=== PATIENT | female | born 1995 | race American Indian/Alaskan Native ===

== ENCOUNTER 2017-01-22 09:00 | Emergency (ER) | payer BC ==
[2017-01-22 09:57] VITALS: BP 133/82
[2017-01-22] MEDS ORDERED: TORADOL IM ONE (13:50)
--- NOTE | 2017-01-22 14:35 | XRay Report ---
RIGHT HIP RADIOGRAPHS INDICATION: Pain, status post fall. COMPARISON: None similar. FINDINGS: An AP pelvic radiograph with frog-leg projection of the right hip demonstrate intact articulation. Imaged bilateral SI and hip joints appear intact. Nonobstructive bowel gas pattern. CONCLUSION: No acute radiographic abnormality. Thank you for the opportunity to participate in this patient's care.
== END 2017-01-22 14:34 | disposition home or self-care (01) ==
LOC: ED 09:00
DX: S79.911A Unspecified injury of right hip, initial encounter (principal); W18.2XXA Fall in (into) shower or empty bathtub, initial encounter; Y93.89 Activity, other specified; Y99.8 Other external cause status; Y92.098 Other place in other non-institutional residence as the place of occurrence of the external cause
CPT/HCPCS: 73502; 96372; 99283; J1885